=== PATIENT | male | born 1960 | race Two or more races ===

== ENCOUNTER 2022-02-23 08:00 | Emergency (ER) | payer SELFPAY ==
[~2022-02-23] VITALS: Ht 175.3 cm; Wt 95.5 kg
[2022-02-23 08:10] VITALS: BP 153/59
[2022-02-23] MEDS ORDERED: KETOROLAC TROMETH 60MG/2ML VIAL IM ONE (08:30)
[2022-02-23] MEDS ORDERED: IBUP800T27 PO (08:49)
== END 2022-02-23 08:53 | disposition home or self-care (01) ==
LOC: ER 08:00
DX: M23.92 Unspecified internal derangement of left knee (principal); Z79.1 Long term (current) use of non-steroidal anti-inflammatories (NSAID)
CPT/HCPCS: 73562; 96372; 99283; J1885